=== PATIENT | male | born 1945 | race Caucasian/White ===

== ENCOUNTER 2016-12-08 08:58 | Observation (INO) | payer MEDICARE ==
[~2016-12-08] VITALS: Ht 175.3 cm; Wt 85.4 kg
[2016-12-08] VITALS (19 sets, daily range): BP systolic 115–153; BP diastolic 60–84; PULSE 82–97; RESP 15–21; O2SAT 90–97
[~2016-12-08 08:58] MED LIST: ALBU8.5H2 INHALATION; ATEN25TA PO; FLUT16SP NS; LEVO88TA3 PO; OXYC1TAB24 PO; TAMS0.4C98 PO
--- NOTE | 2016-12-08 09:29 | ED.REPORT ---
HPI-Abd Pain M 40 and Over Date of Service Dec 08, 2016 ED Provider: Aleksandar Neal MD Pt is a 71 year old male with a history of kidney stones, laser lithotripsy and stents who presents to the ED complaining of lower abdominal pain onset 17:00 yesterday. Pt rates his pain a 6/10 in severity and states that it is exacerbated by movement. He has taken oxycodone for the pain without significant relief. The pt denies fever, back pain, nausea, vomiting, dysuria, hematuria, or a change in appetite or fluid intake. He suspects that his pain may be related to another kidney stone, but is not experiencing the back pain that he had during the last episode of kidney stones. Nursing Notes Stated Complaint: POSSIBLE KINDEY STONE Chief Complaint: Male Abdominal Pain Nursing Notes Reviewed: Yes (Zillabyte not reconciled) Allergies: Coded Allergies: amoxicillin (Verified Allergy, Intermediate, Rash, 01/16/16) ciprofloxacin (Verified Allergy, Intermediate, Rash, 01/16/16) clindamycin (Verified Allergy, Intermediate, Rash, 01/16/16) Scheduled Albuterol HFA (Proair HFA) 8.5 Gm Hfa.aer.ad 2 PUFFS INHALATION Q4H Fluticasone Propionate (Fluticasone Propionate Nasal) 16 Gm Caroleen.susp 1 SPRAY NS BID Levothyroxine (Synthroid) 88 Mcg Tablet 88 MCG PO DAILY Scheduled PRN oxyCODONE-Acetaminophen 5-325 mg (oxyCODONE-Acetaminophen 5-325 mg) 1 Each Tablet 1-2 TAB PO Q6H PRN PRN For Pain Miscellaneous Medications Triamcinolone Acetonide (Nasacort) 10.8 Ml Caroleen 10.8 ML NS General Time Seen by MD: 09:28 Chief Complaint Abdominal pain Hx Obtained From: Patient Arrived By: Walk-in Sudden in Onset?: No Onset Occurred: Yesterday Symptom Duration: Since onset Progression since Onset: Gradually worsening Location: : Abdomen lower Quality: Painful Severity: Current: Pain level 6 out of 10 Recent Healthcare: No recent doctor visit, No recent hospitalization Similar Sx Previous: Yes Risk Factors )( AAA Risk Stratification No Hypertension Risk factors reviewed Past Medical History Past Medical History Kidney stone diagnosed December 2015 (9 mm x 6 mm right UPJ stone) Asthma Hypothyroidism Past Surgical History stents laser lithotripsy Smoking History Unknown if Ever Smoker Ambulatory Status Independent Review of Systems Review of Systems Note: Denies any change in appetite Denies any change in fluid intake Constitutional: Denies: Fever Respiratory: Denies: Non-productive cough, Shortness of breath Cardiovascular: Denies: Chest pain GI: Reports: Abdominal pain (Lower), Denies: Nausea, Vomiting Male: Denies Dysuria, Denies Hematuria Musculoskeletal: Denies: Back pain, Neck pain Complete sys rev & neg: except as marked. Physical Exam Initial Vital Signs Vital Signs (First) Date Time Temp Pulse Resp B/P Pulse Ox O2 Delivery O2 Flow Rate FiO2 12/08/16 09:02 36.8 83 153/81 93 Room Air Initial VS: Reviewed, Vital signs normal General/Constitutional: Awake, Alert, No acute distress Respiratory / Chest: Atraumatic, Breath sounds NL, Breath sounds = bilat, No respiratory distress Cardiovascular: Heart rate NL, Regular rhythm, Heart sounds NL Abdomen: Atraumatic, Soft, Non-tender Back: Atraumatic, Inspection NL, Full range of motion Head / Eyes: Atraumatic, Normocephalic, PERRL, EOMI ENT: Atraumatic, Airway patent, Mucous membranes moist Skin: Atraumatic, Color NL, No rash, Warm, Dry Neurologic: Oriented X3, Speech NL, No motor deficits, No sensory deficits Neck: Atraumatic, Supple, Full range of motion Upper Extremity / MS: Atraumatic, Inspection NL, Full range of motion Lower Extremity / Pelvis / MS: Atraumatic, Inspection NL, Full range of motion Psychiatric: Affect NL, Mood NL Interpretation & Diagnostics Interpretation & Diagnostics: CT KUB IMPRESSION: Acute appendicitis, with internal small appendicolith in the lumen of the distended appendix. This appendicolith does not completely fill the lumen and may not be the cause of acute appendicitis. Surgical consultation is recommended. Dictated by: Eran Torres M.D. on 12/08/2016 at 10:56 Approved by: Eran Torres M.D. on 12/08/2016 at 10:58 Lab Results Interpretation Result Diagram: 12/08/16 0952 12/08/16 0952 Test 12/08/16 09:52 12/08/16 11:47 White Blood Count 13.2th/mm3 (3.8-10.1) Red Blood Count 4.86mil/mm3 (4.40-5.80) Hemoglobin 14.6g/dL (13.8-17.2) Hematocrit 43.6% (41.0-50.0) Mean Corpuscular Volume 89.7fL (81-100) Mean Corpuscular Hemoglobin 30.0pg (27.0-35.0) Mean Corpuscular Hemoglobin Concent 33.5% (32.0-37.0) Red Cell Distribution Width 13.9% (12.3-15.4) Platelet Count 218bil/L (150-400) Neutrophils (%) (Auto) 81.1% (40-74) Lymphocytes (%) (Auto) 7.6% (14-46) Monocytes (%) (Auto) 9.6% (4-12) Eosinophils (%) (Auto) 1.2% (0-5) Basophils (%) (Auto) 0.3% (0-3) Sodium Level 137mEq/L (134-144) Potassium Level 4.6mEq/L (3.5-5.2) Chloride Level 101mEq/L (97-108) Carbon Dioxide Level 24mmol/L (18-29) Blood Urea Nitrogen 17mg/dL (8-27) Creatinine 0.83mg/dL (0.76-1.27) Estimat Glomerular Filtration Rate 97mL/min (>59) Glucose Level 106mg/dL (60-99) Calcium Level 9.0mg/dL (8.5-10.1) Magnesium Level 2.0mg/dL (1.6-2.6) Total Bilirubin 0.8mg/dL (0.0-1.2) Aspartate Amino Transf (AST/SGOT) 21U/L (0-50) Alanine Aminotransferase (ALT/SGPT) 11U/L (0-44) Alkaline Phosphatase 42U/L (25-160) Total Protein 7.1g/dL (6.4-8.4) Albumin 4.1g/dL (3.4-5.0) Lipase 15U/L (13-60) Urine Color Yellow (YELLOW) Urine Appearance Clear (CLEAR,HAZY) Urine pH 6.0 (5.0-8.0) Urine Specific [place]field 1.010 (1.003-1.035) Urine Protein Negativemg/dL (NEG,TRACE) Urine Glucose (UA) Negativemg/dL (NEGATIVE) Urine Ketones Negativemg/dL (NEGATIVE) Urine Occult Blood Negative (NEGATIVE) Urine Nitrite Negative (NEGATIVE) Urine Bilirubin Negative (NEGATIVE) Urine Urobilinogen Normalmg/dL (NORMAL) Urine Leukocyte Esterase Negative (NEGATIVE) Urine RBC 0-2/hpf (0-2) Urine WBC 0-5/hpf (0-5) Urine Epithelial Cells Few/hpf (NONE-MOD) Urine Crystals None seen (NONE SEEN) Urine Bacteria None/hpf (NONE-FEW) Urine Hyaline Casts None/lpf (NONE) Urine Granular Casts None seen (NONE SEEN) Urine Waxy Casts None seen (NONE SEEN) Urine Red Blood Cell Casts None seen (NONE SEEN) Urine White Blood Cell Casts None seen (NONE SEEN) Urine Mucus None seen (None Seen) Urine Trichomonas None seen (NONE SEEN) Urine Yeast None (NONE SEEN) Urinalysis Comment None Urine Culture Reflexed Not indicated Lab Results Interpretation: CBC +leukocytosis CMP normal UA Neg Re-Eval/Medical Decision Med Decision/Clinical Course This is a 71-year-old male presents with progressive anterior abdominal pain, slightly worse in the right lower quadrant that started last evening. He is concerned because it might be a kidney stone, as he required mechanical treatment and intervention for a very large kidney stone that was identified on previous visit in December when he thought he was a developing appendicitis, but he does note that that pain radiated to his back and this does not. Eyes fevers chills dysuria or additional complaint. Exam he appears clinically well, and has only trace tenderness without guarding or rebound. Given his age workup was obtained, positive leukocytosis is evident and CT reveals a positive appendicitis with an appendicolith. Surgeries consult obtained and saw the patient the patient is being admitted for continued management. Given his penicillin allergy, he is being covered with Levaquin plus Flagyl. Levaquin was chosen despite the patient's listing of Cipro allergy as the patient states he specifically tolerates Levaquin well. Source of Hx: Old records Time of Eval: 11:02 Patient Status: Condition improved Re-Evaluation/Progress Note: Pt rechecked. Discussed all results. Informed pt plan for admission. Pt understands and agrees with plan. All questions addressed. Consultation : Referral / Consult Name: Guillermo Goodman MD Consulted With: Surgeon Call Returned at: 11:08 Senior Integration Developer: Agrees with eval, Agrees with plan, Accepts admit Note: Discussed pts case with Dr. Goodman, surgeon. He agrees with the evaluation and agrees to admit the pt to surgery. Differential Diagnosis: Positive: Acute abdominal pain, Appendicitis, Negative: Abdominal aortic aneurysm, Abscess, Dyspepsia, Esophageal rupture, Gun shot wound abdomen, Pyelonephritis, Trauma, abdominal, Unstable angina, Urinary tract infection, Urolithiasis, Volvulus Counseled Regarding: Diagnosis, Lab results, Need for admission Discharge & Departure Primary Impression: Appendicitis Appendicitis type: acute appendicitis Acute appendicitis type: with localized peritonitis Qualified Code: K35.3 - Acute appendicitis with localized peritonitis Disposition: ADMITTED TO HOSPITAL Vital Signs - All Vital Signs Date Time Temp Pulse Resp B/P Pulse Ox O2 Delivery O2 Flow Rate FiO2 12/08/16 12:20 36.9 88 148/74 95 Room Air 12/08/16 09:02 36.8 83 153/81 93 Room Air )( All Prior VS Reviewed: Yes Condition: Improved Referrals: Eloy Hawthorne MD (PCP) Scribe Attestation Portions of this note were transcribed by Awa Dyson and Mei Desai. I, Dr. Neal personally performed the history, physical exam and medical decision -making; I reviewed and confirmed the accuracy of the information in the transcribed note. copies to: Eloy Hawthorne MD, Matthew F MD Dec 08, 2016 09:29 Awa Dyson Dec 08, 2016 09:39 MEI DESAI Dec 08, 2016 13:32 Aleksandar Neal MD Dec 08, 2016 09:29 Awa Dyson Dec 08, 2016 09:39 MEI DESAI Dec 08, 2016 13:32
[2016-12-08] MEDS ORDERED: Ondansetron 2 mg/mL 2 mL Inj IVPUSH ONE (09:30)
[2016-12-08] MEDS: HYDROmorphone 0.5 mg/0.5 mL iSecure Syringe IVPUSH PRN ×2 (09:55→11:30)
[2016-12-08 10:09] LABS: BASOPHILS % (AUTO) 0.3 % (0-3); EOSINOPHILS % (AUTO) 1.2 % (0-5); MONOCYTES % (AUTO) 9.6 % (4-12); Mean Corpuscular Volume 89.7 fL (81-100); NEUTROPHILS % (AUTO) 81.1 % (40-74); Platelet Count 218 bil/L (150-400)
[2016-12-08] MEDS ORDERED: ASCO-294 PO (10:46)
[2016-12-08] MEDS ORDERED: TRIA10.8 NS (10:46)
--- NOTE | 2016-12-08 11:00 | DRSVH ---
PROCEDURE: CT KUB ([id number]) INDICATIONS: abd pain, ho stones TECHNIQUE: Noncontrast 5 mm thick sections acquired from the diaphragms to the symphysis. 5 mm thick coronal an d sagittal reformats were then performed. For radiation dose reduction, the following was used: aut omated exposure control, adjustment of mA and/or kV according to patient size. COMPARISON: None. FINDINGS: Image quality: Excellent. Lung bases: Lung bases are clear. Heart size is normal. Urinary system: Both kidneys are normal in size. No kidney stones. No hydronephrosis or perinephri c fat stranding. Both ureters appear non-dilated throughout their expected courses. Bladder wall th ickness is normal; no calcified bladder stones. Other solid organs: Liver and spleen are normal in size. Gallbladder appears normal. Pancreas is n ormal in contours. No adrenal nodules. Peritoneum and bowel: Unenhanced bowel loops demonstrate normal wall thickness and caliber. No free fluid or air. Nodes and vessels: No retroperitoneal or mesenteric adenopathy by size criteria. Aorta and inferior vena cava are normal in caliber. Abdominal wall: No ventral hernias. Pelvis: No free pelvic fluid. No inguinal hernias or adenopathy. At the right lower quadrant there is acute appendicitis with periappendiceal edema in the appendix caliber is up to 1.3 cm with a smal l nonobstructive appendicolith seen within the lumen of the distended appendix, measuring approximate ly 4-5 mm in maximal dimension (series 2 image 62). Bones: No suspicious bony lesions. No vertebral body compression fractures. IMPRESSION: Acute appendicitis, with internal small appendicolith in the lumen of the distended appen maria e. This appendicolith does not completely fill the lumen and may not be the cause of acute appendi citis. Surgical consultation is recommended. Dictated by: Eran Torres M.D. on 12/08/2016 at 10:56 Approved by: Eran Torres M.D. on 12/08/2016 at 10:58
[2016-12-08] MEDS ORDERED: metroNIDAZOLE Inj 1,000 MG in IV Premix 1 EACH IV ONE (11:15)
[2016-12-08] MEDS ORDERED: levoFLOXacin Inj 750 MG in IV Premix 1 EACH IV ONE (11:15)
[2016-12-08 12:18] LABS: APPEARANCE,URINE CLEAR (CLEAR,HAZY); COLOR,URINE YELLOW (YELLOW); OCCULT BLOOD,URINE NEGATIVE (NEGATIVE); UROBILINOGEN,URINE NORMAL (NORMAL)
[2016-12-08] MEDS ORDERED: Phenylephrine/NS 100 mCg/mL 10 mL Syringe IVPUSH ONE (13:09)
[2016-12-08] MEDS ORDERED: Succinylcholine Chloride 20 mg/mL 5 mL Inj ONE (13:09)
[2016-12-08] MEDS ORDERED: Lactated Ringer's 1,000 ML IV ONE (13:09)
[2016-12-08] MEDS ORDERED: Rocuronium 10 mg/mL 5 mL Inj ONE (13:09)
[2016-12-08] MEDS ORDERED: Propofol 10 mg/mL 20 mL Inj ONE (13:09)
[2016-12-08] MEDS ORDERED: Glycopyrrolate 0.2 MG/ML 1mL Inj ONE (13:09)
[2016-12-08] MEDS ORDERED: Ondansetron 2 mg/mL 2 mL Inj ONE (13:09)
[2016-12-08] MEDS ORDERED: MetoCLOpramide 5 mg/mL 2 mL Inj ONE (13:09)
[2016-12-08] MEDS ORDERED: Dexamethasone 4 mg/mL Inj ONE (13:09)
[2016-12-08] MEDS ORDERED: Neostigmine 1 mg/mL 10 mL Inj ONE (13:09)
[2016-12-08] MEDS ORDERED: fentaNYL-PF 50 mCg/mL 2 mL Inj ONE (13:09)
--- NOTE | 2016-12-08 13:13 | NUR ---
Admit Pt arrived at 1229 on gurney, able to transfer self to bed. A&O x 3, VERONICA JOHNSON. Pain 6/10 in abdomen. Oriented to room and call light. Partial admission done before OR took pt at 1250. Report to JOHAN Rivers.
[2016-12-08] MEDS ORDERED: Lactated Ringer's 1,000 ML IV SCH (13:37)
[2016-12-08] MEDS ORDERED: Lactated Ringer's 500 ML IV PRN (13:37)
[2016-12-08] MEDS ORDERED: Bupivacaine-MPF 0.5% 30 mL Inj INFILTRATE ONE (13:38)
[2016-12-08] MEDS ORDERED: EPHEDrine Sulfate 50 mg/mL Inj IVPUSH PRN (13:40)
[2016-12-08] MEDS ORDERED: HYDROmorphone 1 mg/mL Inj IVPUSH PRN (13:40)
[2016-12-08] MEDS ORDERED: Albuterol-Ipratropium 3 mL Inhalation Solution NEB PRN (13:40)
[2016-12-08] MEDS ORDERED: Ondansetron 2 mg/mL 2 mL Inj IVPUSH PRN ×2 (13:40→14:10)
[2016-12-08] MEDS ORDERED: Atropine 0.4 mg/mL Inj IVPUSH PRN (13:40)
[2016-12-08] MEDS ORDERED: fentaNYL-PF 50 mCg/mL 2 mL Inj IVPUSH PRN (13:40)
[2016-12-08] MEDS ORDERED: Labetalol 5 mg/mL 20 mL Inj IV PRN (13:40)
[2016-12-08] MEDS ORDERED: MetoCLOpramide 5 mg/mL 2 mL Inj IVPUSH PRN (13:40)
[2016-12-08] MEDS ORDERED: Phenylephrine 10,000 mCg/mL Inj IVPUSH PRN (13:40)
[2016-12-08] MEDS ORDERED: diphenhydrAMINE 25 mg Capsule PO PRN (14:10)
--- NOTE | 2016-12-08 14:38 | PCM.HPANE ---
Patient Data Surgeon Admitting Provider: Attending Provider: Primary Care Physician:Eloy Hawthorne MD Other Provider: Reason for Visit Possible Kindey Stone Ht/WT & BMI Height (Feet): 5 Height (Inches): 8 Weight (Kilograms): 83 Body Mass Index Allergies Coded Allergies: amoxicillin (Verified Allergy, Intermediate, Rash, 01/16/16) ciprofloxacin (Verified Allergy, Intermediate, Rash, 01/16/16) clindamycin (Verified Allergy, Intermediate, Rash, 01/16/16) Past Anesthesia History Anesthesia History: Denies:: Abnormal Airway, Anesthesia Reactions, Difficult Intubation, Fam Anesthesia Reaction, Fam Malignant Hypertherm, Malignant Hyperthermia Diabetes History Hx Diabetes?: No Medications Active Scripts oxyCODONE-Acetaminophen 5-325 mg 1 Each Tablet1-2 Tab PO Q6H PRN For Pain #30 TABLET Prov:Emily Ray MD 01/16/16 Reported Medications Triamcinolone Acetonide (Nasacort)10.8 Ml Spray10.8 Ml NS 12/08/16 Albuterol HFA (Proair HFA)8.5 Gm Hfa.aer.ad2 Puffs INHALATION Q4H #1 INHALER 01/16/16 Fluticasone Propionate (Fluticasone Propionate Nasal)16 Gm Celoron.susp1 Celoron NS BID #16 GM Ref 0 01/16/16 Levothyroxine (Synthroid)88 Mcg Ryobcz31 Mcg PO DAILY Ref 0 01/16/16 Discontinued Reported Medications Ascorbate Calcium (Vitamin C)500 Mg Tablet1,000 Mg PO 12/08/16 Atenolol 25 Mg [id number] Mg PO DAILY #30 TABLET Ref 0 01/16/16 Discontinued Scripts Tamsulosin (Flomax)0.4 Mg Capsule0.4 Mg PO DAILY #30 CAPSULE Ref 0 Prov:Emily Ray MD 01/16/16 History History of ENT Problems?: No HEENT History: Denies:: Abnormal Airway Cataracts Difficult Intubation Dysphagia Glaucoma Hearing Problem Sinus Problem TMJ Denture Type: None Teeth Condition: Within Normal Limits Hx of Heart Problems?: No Cardiovascular History: Denies:: AICD Abdominal Aortic Aneurism Atrial Fibrillation Cardiac Surgery Chest Pain Congestive Heart Failure Coronary Artery Disease Edema Heart Murmur Hypertension Irregular Heartbeat Pacemaker Peripheral Vascular Rheumatic Fever Thrombophlebitis Valvular Heart Disease Hx of Respiratory Problem?: No Respiratory History: Positive for:: Asthma Denies:: COPD Chest Surgery Cough Dyspnea Emphysema Hemoptysis Oxygen Administration Pneumonia Pulmonary Embolism Tuberculosis Use of C-PAP Machine Use of Inhalers / NEBS Hx Neurologic Problems?: No Neurological History: Denies:: Alzheimer's Disease CVA Dementia Dizziness Headaches Multiple Sclerosis Parkinson's Disease Peripheral Neuropathy Seizures TIA Hx of GI Problems?: No Gastrointestinal History: Denies:: Cirrhosis Diverticulitis Gall Bladder Disease Gastroesphageal Reflux Gastrointestinal Bleeding Heartburn Hepatitis Hiatal Hernia Liver Disease Rectal Bleeding Hx of Problems?: No Genitourinary History: Denies:: HX of Hemodialysis Kidney Stones Urinary Tract Infection HX of Peritoneal Dialysis: No Male Hx: Denies:: Prostate Problems Scrotal Mass Testicular Surgery Skin History: Denies:: History Skin Disorders? Pressure Ulcers Hx Musculoskeletal Problems?: No Musculoskeletal History: Denies:: Back Injury Degenerative Joint Fibromyalgia Joint Replacement Musculoskeletal Trauma Myasthenia Gravis Osteoarthritis Rheumatoid Arthritis Systemic Lupus Hx of Psycho/Social Problems?: No Psycho Social History: Denies:: Anxiety Bipolar Disorder Hx Depression Suicide Attempt Hx Surgeries?: No Hx Any Other Health Problems?: No Hx Diabetes: No Hx Alcohol Use: Yes (wine with dinner)Hx Substance Use: NoHave You Smoked inLast 12 mo: No Stop/Bang Risk Assessment Category Category 1A: Patient has history of documented sleep apnea, and HAS NOT received any narcotic, sedative or anesthesia administration during this stay. Category 1B: Patient has history of documented sleep apnea, and HAS received any narcotic , sedative or anesthesia administration during this stay Category 2: Patient has SUSPECTED Obstructive Sleep Apnea, and HAS received any narcotic , sedative or anesthesia administration during this stay. Category 3: Patient has SUSPECTED Obstructive Sleep Apnea and HAS NOT received narcotic, sedative or anesthesia administration during this stay. Category 4: Outpatient in Procedural Areas with known sleep apnea or who screen positive for High Risk via the STOP/BANG questionnaire. Exam Exam Vital Signs Vital Signs Date Time Temp Pulse Resp B/P Pulse Ox O2 Delivery O2 Flow Rate FiO2 12/08/16 09:02 36.8 83 153/81 93 Room Air General Appearance: Alert, Oriented X3, Cooperative, No Acute Distress HEENT/AIRWAY: MP 2, Neck Movement (FROM), Mouth Opening (3 FBMO) Lungs: Clear to Auscultation, Normal Air Movement Heart: Exam Unremarkable, Regular Rate/Rhythm, No Murmurs/Rubs/Gallops Meds/Labs/Diagnostics Admission Meds Current Medications Ondansetron HCl 4 mg 4 mg ONCE ONCE IVPUSH Last administered on 12/08/16 09: 55; Start 12/08/16 at 09:30; Stop 12/08/16 at 09:31; Status DC Levofloxacin/ Dextrose 750 mg/ Premix 150 ml @ 100 mls/hr ONCE ONCE IV Last administered on 12/08/16 12:03; Start 12/08/16 at 11:15; Stop 12/08/16 at 12:44 Metronidazole/ Sodium Chloride/ Premix (Flagyl Inj/IV Premix) 200 ml @ 200 mls/ hr ONCE ONCE IV Last administered on 12/08/16 11:30; Start 12/08/16 at 11:15 ; Stop 12/08/16 at 12:14 Labs Test 12/08/16 09:52 12/08/16 11:47 White Blood Count 13.2th/mm3 (3.8-10.1) Red Blood Count 4.86mil/mm3 (4.40-5.80) Hemoglobin 14.6g/dL (13.8-17.2) Hematocrit 43.6% (41.0-50.0) Mean Corpuscular Volume 89.7fL (81-100) Mean Corpuscular Hemoglobin 30.0pg (27.0-35.0) Mean Corpuscular Hemoglobin Concent 33.5% (32.0-37.0) Red Cell Distribution Width 13.9% (12.3-15.4) Platelet Count 218bil/L (150-400) Neutrophils (%) (Auto) 81.1% (40-74) Lymphocytes (%) (Auto) 7.6% (14-46) Monocytes (%) (Auto) 9.6% (4-12) Eosinophils (%) (Auto) 1.2% (0-5) Basophils (%) (Auto) 0.3% (0-3) Sodium Level 137mEq/L (134-144) Potassium Level 4.6mEq/L (3.5-5.2) Chloride Level 101mEq/L (97-108) Carbon Dioxide Level 24mmol/L (18-29) Blood Urea Nitrogen 17mg/dL (8-27) Creatinine 0.83mg/dL (0.76-1.27) Estimat Glomerular Filtration Rate 97mL/min (>59) Glucose Level 106mg/dL (60-99) Calcium Level 9.0mg/dL (8.5-10.1) Magnesium Level 2.0mg/dL (1.6-2.6) Total Bilirubin 0.8mg/dL (0.0-1.2) Aspartate Amino Transf (AST/SGOT) 21U/L (0-50) Alanine Aminotransferase (ALT/SGPT) 11U/L (0-44) Alkaline Phosphatase 42U/L (25-160) Total Protein 7.1g/dL (6.4-8.4) Albumin 4.1g/dL (3.4-5.0) Lipase 15U/L (13-60) Plan Impression Patient chart reviewed, patient interviewed and anesthestic plan with risks, benefits, and alternatives discussed, and informed consent obtained. NPO per Anesth. Guidelines: Yes ASA Physical Status: ASA2 Mod Systemic Disease Anesthetic Plan: GA Bene/Risks/Altern/Consents: Yes HP Complete Prior to Induction: Yes Scot Combs MD Dec 08, 2016 12:11
--- NOTE | 2016-12-08 14:39 | PCM.ANEP1 ---
Post Anesthesia PACU Phase 1 Assessment Vital Signs Vital Signs Date Time Temp Pulse Resp B/P Pulse Ox O2 Delivery O2 Flow Rate FiO2 12/08/16 14:30 96 20 131/70 96 Room Air 12/08/16 14:25 96 19 152/84 97 Simple Mask 8 12/08/16 14:20 36.8 97 21 148/70 97 Simple Mask 8 12/08/16 12:29 36.9 88 148/74 95 Room Air 12/08/16 12:20 36.9 88 148/74 95 Room Air 12/08/16 09:02 36.8 83 153/81 93 Room Air Anesthetic Administered: GA Level of Alertness: Awake, talking JOHNSON's with Equal Strength: Yes Pain: Yes Pain Scale Score: 2 Nausea or Vomiting: No CV Function & Hydration Stable: Yes Airway Device: n/a Oxygen Delivery: Room Air Lungs: Clear to Auscultation, Normal Air Movement Dermatome Level: Full Sensation PACU Phase 2 Assessment Complications: No Follow up Care: N/A Patient Instructions Provided: N/A Scot Combs MD Dec 08, 2016 14:39
[2016-12-08] MEDS: Fluticasone 0.05% 15 Spray/2 Gm 16 Gm Nasal Spray NASAL SCH ×2 (15:05→19:54)
--- NOTE | 2016-12-08 15:16 | HP ---
[address] [address] HISTORY AND PHYSICAL PATIENT: LLOYD FORDE : 1945 MR#: [id number] ADMIT: 12/08/2016 JOB ID: [id number] CHIEF COMPLAINT/IDENTIFICATION: I was asked to see this 71-year-old man with probable appendicitis. HISTORY OF PRESENT ILLNESS: The patient was in his usual state of health, developed right lower quadrant pain yesterday that was reminiscent but different from his kidney stone pain. He was evaluated in the emergency department, and by CT scan found to have appendicitis. The patient denies nausea, vomiting, other GI complaints. He has had no blood in his stool. PAST MEDICAL HISTORY: Relatively negative except for nephrolithiasis, hypothyroidism and asthma. MEDICATIONS: Albuterol, fluticasone, levothyroxine. ALLERGIES: AMPICILLIN, CLINDAMYCIN. He also reports an allergy to CIPROFLOXACIN but has had levofloxacin in the past. SOCIAL HISTORY: . Negative tobacco, negative daily alcohol, is hoping to take a private flight on Saturday. FAMILY HISTORY: Noncontributory. REVIEW OF SYSTEMS: Negative. PHYSICAL EXAMINATION: Overweight man in no acute distress. Vital signs are recorded in the chart, are within normal limits. He is afebrile. Neurologically, he is intact. Neck is supple. Lungs are clear. Heart sounds are regular. He has mild right lower quadrant tenderness. Extremities are without edema. LABORATORIES: Show a white count of 13.2, hematocrit of 42, normal chemistries and a normal lipase. IMAGING: I have looked at the report and his CT and I concur that this is consistent with appendicitis. IMPRESSION AND PLAN: Probable appendicitis. I have recommended laparoscopic appendectomy. I have also told him that if all goes well, he will likely be discharged tomorrow, and although he might be tired and uncomfortable, there would be no medical contraindication to flying on a private jet on Saturday.
--- NOTE | 2016-12-08 15:28 | OP ---
[address] [address] OPERATIVE REPORT PATIENT: LLOYD FORDE : 1945 MR#: [id number] ADMIT: 12/08/2016 JOB ID: [id number] DATE OF SURGERY: 12/08/2016 PREOPERATIVE DIAGNOSIS(ES): Appendicitis. POSTOPERATIVE DIAGNOSIS(ES): Appendicitis. PROCEDURE: Laparoscopic appendectomy. SURGEON: Guillermo Goodman MD. DEPUTY CHIEF MAGISTRATE: Eran Phillips PA-C. INDICATIONS: A 71-year-old man with signs and symptoms consistent with appendicitis. FINDINGS: 1. assistant reading teacher was required for camera operation. 2. Acute nonperforated appendicitis. PROCEDURE: SCOAP protocol was followed. The patient received preoperative antibiotics within the hour prior to surgery. The abdomen was prepped and draped in sterile fashion. Surgical time-out was performed. We obtained access with a Veress needle. We placed three ports. The patient was positioned head down and tilted to the left. He had obvious appendicitis but without perforation. There was a fair amount of fibrinous exudate on the appendix and some reactive fluid around it. We mobilized the appendix, used electrocautery to take down part of the mesoappendix and then used a single firing of the [place] 45 stapler to go across the residual mesoappendix and the base of the appendix right at the cecum. Specimen was removed in a bag without wound contamination. We checked for hemostasis which was good. We now suctioned out the fluid that was around and then irrigated out and suctioned out all of that irrigation fluid. Having completed the appropriate amount of irrigation we let our CO2 out, removed our ports and closed the wounds with absorbable suture. The patient tolerated the procedure well.
[2016-12-08] MEDS: Albuterol 2.5 mg/3 mL Inhalation Solution NEB SCH ×2 (16:00→20:00)
--- NOTE | 2016-12-08 17:04 | NUR ---
Post op Pt arrived back to room 1005 at 1520 on rmodesto, able to transfer self to bed. VSS, A&O x 3, JOHNSON, on 2L NC. Pt denies pain, but is requesting water. 3 lap sites are CDI with telfa and bio-occlusive. SCD's in place and connected. Bed in low, call light in reach, continue q1 hour rounding.
--- NOTE | 2016-12-08 18:03 | NUR ---
O2 Weaned pt off 2L to RA. Sating at 96%. Care continues.
--- NOTE | 2016-12-08 19:17 | NUR ---
CHAYA explained to pt and his who is at bedside. CHAYA signed, copy given to pt.
[2016-12-09 00:33] VITALS: BP 120/61; PULSE 77; RESP 17; O2SAT 93
--- NOTE | 2016-12-09 04:33 | NUR ---
Pain Pt. reported pain earlier in shift. 5mg Amelia PO given and effective. Pt. fell asleep afterwards. Will continue to monitor.
[2016-12-09 05:19] VITALS: BP 135/76; PULSE 77; RESP 18; O2SAT 93
[2016-12-09] MEDS: Fluticasone 0.05% 15 Spray/2 Gm 16 Gm Nasal Spray NASAL SCH (09:51)
[2016-12-09 10:04] VITALS: BP 115/71; PULSE 78; RESP 17; O2SAT 95
[2016-12-09] MEDS ORDERED: OXYC5TAB72 PO (10:32)
--- NOTE | 2016-12-09 10:34 | PCM.DISURG ---
Surgical Discharge Instruction Date of Service Dec 09, 2016 Dates of Hospitalization Date of Hospital Admission Dec 08, 2016 at 12:27 Providers Admitting Physician: Guillermo Goodman MD Primary Care Physician: Eloy Hawthorne MD Attending Physician: Guillermo Goodman MD Discharge Diagnosis Discharge Diagnosis APPENDICITIS Post Operative diagnosis laparoscopic appendectomy Diet Discharge Diet: No restrictions Activity Discharge Activity-General: No restrictions Dressing and Incisional Care Dressing Care: Allow Steri Stripes to fall off, Remove outer dressing after 24 hrs Hygiene: May shower Follow Up Plan Follow Up Plan follow up in 1-4 week for routine pathology and wound review with [facility] Call your provider for: Fever, Chills, Wound redness Guillermo Goodman MD Dec 09, 2016 10:34
--- NOTE | 2016-12-09 11:15 | NUR ---
Discharge Pt discharged at 1106 walking out to private vehicle with spouse. Denies pain, walking in hallways and in room. VSS, JOHNSON, A&O x 3. Dressings are all CDI and pt educated when to take them off. Pt has discharge instructions, care notes and rx. All questions answered and has all belongings.
--- NOTE | 2016-12-09 18:21 | DIS ---
[address] [address] DISCHARGE SUMMARY PATIENT: LLOYD FORDE : 1945 MR#: [id number] ADMIT: 12/08/2016 JOB ID: [id number] DIS: 12/09/2016 DISCHARGE DIAGNOSIS: Appendicitis. OPERATIONS AND PROCEDURES: Laparoscopic appendectomy. HOSPITAL COURSE: A 71-year-old man who presented with signs and symptoms of appendicitis. He was taken to the operating room and underwent an uneventful laparoscopic appendectomy. On the morning of postop day number one, he is afebrile, stable vital signs, incisions in good shape. He is tolerating p.o. He will be discharged home with p.o. oxycodone, resume all previous medications, follow up in 1-4 weeks with the [facility] for routine wound and pathology check. He is released to fly in a private plane.
--- NOTE | 2016-12-17 15:57 | PATH ---
SURGICAL PATHOLOGY Attending Physician:Guillermo Goodman MD CASE STATUS: Signed Out PATIENT NAME: LLOYD FORDE PID: [id number] : 1945 DATE COLLECTED:12/08/2016 00:00 SPECIMEN: Appendix CLINICAL HISTORY: APPENDICITIS 1). APPENDIX FINAL DIAGNOSIS: Appendix, Appendectomy: Acute appendicitis. Negative for neoplasm. ICD10: K35.80 GROSS DESCRIPTION: The specimen is received in formalin, labeled with the patient's name, sublabeled as appendix, and consists of an intact appendix (length-5.7 cm, diameter-1.2 cm) with attached mesoappendix (up to 2.6 cm in depth). The resection margin is received stapled. The serosa is vernon-payne smooth, shiny, and partially covered in vernon flaky friable exudate. The lumen contains brown solid soft material. The wall is up to 0.3 cm thick. No nodules, masses or lesions are identified. Ink code: green-resection margin. Section code: (A) appendix, serially sectioned, event representative, resection margin-enface; (B) tip, bivalved, one half submitted. 12/12/16 ICD-9 CODES: CPT CODES: 1: 76236 Electronically Signed Out Aleksandar Hannon MD, Ph.D. [facility]ology [facility] [address], [place] [address] Technical component performed at [facility], [address] [place] [address] Ave[address], [place], [address]
== END 2016-12-09 11:06 | disposition home or self-care (01) ==
LOC: SED 08:58 → OSC 12:27
PROVIDERS: ADMIT Surgery; ATTEND Surgery
PROC: 0DTJ4ZZ Resection of Appendix, Percutaneous Endoscopic Approach (ICD-10-PCS; principal; 2016-12-08 12:45)
DX: K35.80 Unspecified acute appendicitis (principal); Z87.442 Personal history of urinary calculi; E03.9 Hypothyroidism, unspecified; J45.909 Unspecified asthma, uncomplicated
CPT/HCPCS: 36415; 44970; 74176; 80053; 81000; 83690; 83735; 85025; 94640; 96361; 96365; 96367; 96375; 96376; 99285; G0378; J0330; J1100; J1170; J1885; J1956; J2370; J2405; J2704; J2710; J2765; J3010; J3490; J7120; J7620